=== PATIENT | male | born 1975 | race Caucasian/White ===

== ENCOUNTER → 2017-06-04 | Outpatient (CLI) | payer OTHER ==
--- NOTE | 2017-06-04 16:33 | CARD ---
APPROVED REPORT INDICATION Chest Pain Reason : Patient complained of pain PROCEDURE The patient underwent an Exercise Stress Test using the [place] Protocol. Blood pressure, heart rate, a nd EKG were monitored. An Echocardiogram was performed by vocational rehabilitation technician in four stages in quad fashion. At peak stress four se lected images were obtained and placed side by side with resting images for comparison. STRESS ECHO FINDINGS The resting Echocardiogram showed normal left ventricular contractility with an estimated Ejection Fr action of about 55 %. Normal augmentation of myocardial wall segments using a 16 segment model. Test Type: Exercise Stress Nurse/Tech: Alba Ojeda R.N. Test Indications: Chest pain, SOA Cardiac History and Allergies: SEE EMR Medications: SEE EMR Medical History: SEE EMR Resting ECG: ST with intermittent PAC's Resting Heart Rate: 106 bpm Resting Blood Pressure: 130/80mmHg Pretest Chest Pain: No chest pain Nurse/Tech Notes S1S2, lungs CTA, denied chest pain or SOA. Denied dizziness. Consent: The procedure was explained to the patient in lay terms. Informed consent was witnessed. Nasir eout was entered into [employer]. History and Stress Test performed by Alba Ojeda R.N. Stress Symptoms Pt was jogging in stage III of the treadmill and tolerated well. Slightly SOA. POST EXERCISE Reason for Termination: Reached target heart rate Target HR: 152 Max HR: 173 bpm Exercise duration: 7:46 min:sec, 3 Stage Exercise capacity: 10.1METs Max Blood Pressure: 152/70mmHg Blood Pressure response to exercise: Normal blood pressure response during stress. Heart Rate response to exercise: Normal Chest Pain: No. Arrhythmia: No. ST Change: No. INTERPRETATION Stress EKG Conclusion: No acute changes were noted. The patient's target heart rate was achieved. The hemodynamic response to exercise was normal. RESTING ECG Rhythm: Sinus STRESS ECG Rhythm: Sinus Tachycardia Normal ST-Segment changes. Stress EKG shows no significant changes. Preliminary Notification Critical Value: No <Conclusion> Good exercise capacity with 10.1 Mets achieved. Normal baseline and exercise EF at > 55% and 70% respectively. Normal wall motion at stress and rest. Low risk study.
== END | disposition home or self-care (01) ==
LOC: ECHO 13:05
PROVIDERS: ATTEND Internal Medicine Cardiovascular Disease
DX: R07.89 Other chest pain (principal)
CPT/HCPCS: 93017; 93350